=== PATIENT | female | born 1995 | race Caucasian/White ===

== ENCOUNTER 2021-04-02 11:50 | Emergency (ER) | payer MEDICAID ==
[~2021-04-02] VITALS: Ht 152.4 cm; Wt 75.0 kg
[2021-04-02 13:48] LABS: CLARITY URINE CLOUDY (CLEAR); COLOR URINE YELLOW (YELLOW); KETONES URINE NEGATIVE (NEGATIVE); LEUKOCYTE ESTERASE URINE NEGATIVE (NEGATIVE); NITRITE URINE NEGATIVE (NEGATIVE); OCCULT BLOOD URINE NEGATIVE (NEGATIVE); PROTEIN URINE NEGATIVE (NEGATIVE); SPECIFIC GRAVITY URINE 1.019 (1.005-1.030)
[2021-04-02] MEDS ORDERED: NAPR-681 PO (14:51)
[2021-04-02] MEDS ORDERED: CIPR1DRO2 RIGHT EAR (14:51)
[2021-04-02] MEDS ORDERED: MECL-159 PO (14:51)
[2021-04-02 15:04] VITALS: BP 128/65
== END 2021-04-02 15:05 | disposition home or self-care (01) ==
LOC: ER 11:50
DX: H60.91 Unspecified otitis externa, right ear (principal); R42 Dizziness and giddiness
CPT/HCPCS: 81003; 81025; 99283

== ENCOUNTER 2022-04-07 18:06 | Emergency (ER) | payer MEDICAID ==
[~2022-04-07] VITALS: Ht 152.4 cm; Wt 77.5 kg
[~2022-04-07 18:06] MED LIST: CIPR1DRO2 RIGHT EAR; MECL-159 PO; NAPR-681 PO
[2022-04-07] MEDS ORDERED: AMOX-494 MT (20:53)
[2022-04-07] MEDS ORDERED: IBUPROFEN 600MG TABLET PO ONE (21:00)
[2022-04-07] MEDS ORDERED: AMOXICILLIN 500 MG CAPSULE PO ONE (21:00)
[2022-04-07 21:30] VITALS: BP 124/83
== END 2022-04-07 21:34 | disposition home or self-care (01) ==
LOC: ER 18:06
DX: J03.00 Acute streptococcal tonsillitis, unspecified (principal)
CPT/HCPCS: 99283